=== PATIENT | male | born 1945 | race Caucasian/White ===

== ENCOUNTER 2025-02-20 17:04 | Inpatient (IN) | payer BC, MEDICARE ==
--- NOTE | 2025-02-20 17:44 | ED ---
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 Patient is not doing any more treatment and will let the disease run its course. Patient is however having some shortness of breath and increasing cough over the last week or so. Patient is on Xarelto for having previous PEs. Patient has had a couple bouts of pneumonia. Patient denies any chest pain patient has abdominal pain patient has nausea vomiting diarrhea. Patient denies any recent fever - Related Data Home Medications Medication Instructions Recorded Confirmed Aspirin EC [Ecotrin Low Dose] 81 mg PO DAILY 02/20/25 02/20/25 Furosemide [Lasix] 20 mg PO BID 02/20/25 02/20/25 Ipratropium-Albuterol Nebulize 3 ml INHALATION RT-QID PRN 02/20/25 02/20/25 [Duoneb 0.5 mg-3 mg/3 ml Soln] Levothyroxine Sodium [Synthroid] 75 mcg PO DAILY 02/20/25 02/20/25 Rivaroxaban [Xarelto] 20 mg PO DAILY 02/20/25 02/20/25 carvediloL [Coreg] 6.25 mg PO BID 02/20/25 02/20/25 quiNIDine sulfate 200 mg PO BID 02/20/25 02/20/25 Allergies Allergy/AdvReac Type Severity Reaction Status Date / Time No Known Allergies Allergy Verified 02/20/25 19:53 Review of Systems ROS Statement: Those systems with pertinent positive or pertinent negative responses have been documented in the HPI. ROS Other: All systems not noted in ROS Statement are negative. Past Medical History Past Medical History: Cancer, Chest Pain / Angina, Hypertension, Myocardial Infarction ([place]) Additional Past Medical History / Comment(s): Lung CA History of Any Multi-Drug Resistant Organisms: None Reported Past Surgical History: Cholecystectomy Additional Past Surgical History / Comment(s): Eye Past Psychological History: No Psychological Hx Reported Smoking Status: Former smoker Past Alcohol Use History: None Reported Past Drug Use History: None Reported General Exam - General Exam Comments Initial Comments: GENERAL: Patient is well-developed and well-nourished. Patient is nontoxic and well- hydrated and is in no acute distress. ENT: Neck is soft and supple. No significant lymphadenopathy is noted. Oropharynx is clear. Moist mucous membranes. Neck has full range of motion without eliciting any pain. EYES: The sclera were anicteric and conjunctiva were pink and moist. Extraocular movements were intact and pupils were equal round and reactive to light. Eyelids were unremarkable. PULMONARY: Unlabored respirations. Good breath sounds bilaterally. No audible rales rhonchi or wheezing was noted. CARDIOVASCULAR: There is a regular rate and rhythm without any murmurs gallops or rubs. ABDOMEN: Soft and nontender with normal bowel sounds. SKIN: Skin is clear with no lesions or rashes and otherwise unremarkable. NEUROLOGIC: Patient is alert and oriented x3. Cranial nerves II through XII are grossly intact. Motor and sensory are also intact. Normal speech, volume and content. Symmetrical smile. MUSCULOSKELETAL: Normal extremities with adequate strength and full range of motion. No lower extremity swelling or edema. No calf tenderness. LYMPHATICS: No significant lymphadenopathy is noted PSYCHIATRIC: Normal psychiatric evaluation. Limitations: no limitations Course Vital Signs 02/20/25 02/20/25 02/20/25 17:13 17:39 18:55 Temperature 98.2 F Pulse Rate 84 84 Respiratory 22 20 20 Rate Blood Pressure 155/84 O2 Sat by Pulse 90 L 93 L Oximetry 02/20/25 19:23 Temperature Pulse Rate 70 Respiratory 33 H Rate Blood Pressure 131/80 O2 Sat by Pulse 92 L Oximetry Procedures - Chest Tube Insertion Consent Obtained: verbal consent Side of Procedure: right Indication: Pneumothorax Placed on monitor/pulse oximetry: Yes Site Prep: Chloroprep Local Anesthesia: Lidocaine 1% Amount (mLs): 15 Insertion Site: Midaxillary, Other (Fourth intercostal space) Scalpel: #10 Open into Pleural Space Using: Trocar Tube Size (Persian): Other (24) Returns: Air, Blood Sutured in Place: Yes Type of Suture: Silk Dressing Applied: Petroleum Gauze Attached to Suction: Yes Type of Suction: Pleuravac Repeat X-ray Results: Lung Inflated Patient Tolerated Procedure: well Complications: Pain, Bleeding, Other (Needed to move up the rib space secondary to running into a pleural mass on initial attempt) Medical Decision Making - Medical Decision Making EKG is interpreted by myself. EKG shows atrial fibrillation 81 bpm QRS 103 QT interval is 397 QTc is 434. Patient's EKG shows no ST segment elevation or depression the patient does have some T wave inversion inferiorly as well as V4 through V6 Was pt. sent in by a medical professional or institution (MITUL Zamora, RETAIL STOCK CLERK, urgent care, hospital, or [place] [facility] [place] facility...) When possible be specific @ -No Did you speak to anyone other than the patient for history (EMS, parent, family, police, friend...)? What history was obtained from this source @ -No Did you review nursing and triage notes (agree or disagree)? Why? @ -I reviewed and agree with nursing and triage notes Were old charts reviewed (outside hosp., previous admission, EMS record, old EKG, old radiological studies, urgent care reports/EKG's, [place] health [facility] facility records)? Report findings @ -No old charts were reviewed Differential Diagnosis? @ -Differential Dyspnea: Coronary syndrome, arrhythmia, tamponade, asthma, COPD, pulmonary embolism, pneumonia, pneumothorax, pulmonary effusion, anaphylaxis, diabetic ketoacidosis, flailed chest, pulmonary contusion, diaphragmatic rupture, anemia, neuromuscular, this is not meant to be an all-inclusive list. EKG interpreted by me (3pts min.). @ -As above X-rays interpreted by me (1pt min.). @ -Chest x-ray shows a pneumothorax on the right. Repeat chest x-ray after chest tube shows some inflation of the lung. CT interpreted by me (1pt min.). @ -CT scan shows a 20% pneumo remains after the chest tube placement chest tube placement seems to be in good place. There also appears to be some sort of pleural thickening on the right U/S interpreted by me (1pt. min.). @ -None done What testing was considered but not performed or refused? (CT, X-rays, U/S, l abs)? Why? @ -None What meds were considered but not given or refused? Why? @ -None Did you discuss the management of the patient with other professionals (professionals i.e. MITUL Zamora, RETAIL STOCK CLERK, lab, RT, psych nurse, social research assistant, terrazzo tile maker, teacher, environmental technical officer, case resolution specialist)? Give summary @ -I spoke with Dr. Reynolds and indicated him I thought I may have run into a pleural mass and I also spoke with Dr. Ramirez and explained the same thing to him patient will be admitted. Was smoking cessation discussed for >3mins.? @ -No Was critical care preformed (if so, how long)? @ -35 minutes Were there social determinants of health that impacted care today? How? (Homelessness, low income, unemployed, alcoholism, drug addiction, transportation, low edu. Level, literacy, decrease access to med. care, nursing home, r ehab)? @ -No Was there de-escalation of care discussed even if they declined (Discuss DNR or withdrawal of care, Hospice)? DNR status @ -No What co-morbidities impacted this encounter? (DM, HTN, Smoking, COPD, CAD, Cancer, CVA, ARF, Chemo, Hep., AIDS, mental health diagnosis, sleep apnea, morbid obesity)? @ -None Was patient admitted / discharged? Hospital course, mention meds given and route, prescriptions, significant lab abnormalities, going to OR and other pertinent info. @ -Pneumothorax was relieved by the chest tube. Undiagnosed new problem with uncertain prognosis? @ -No Drug Therapy requiring intensive monitoring for toxicity (Heparin, Nitro, Insulin, Cardizem)? @ -No Were any procedures done? @ -No Diagnosis/symptom? @ -Pneumothorax Acute, or Chronic, or Acute on Chronic? @ -Acute Uncomplicated (without systemic symptoms) or Complicated (systemic symptoms)? @ -Complicated Side effects of treatment? @ -No Exacerbation, Progression, or Severe Exacerbation? @ -No Poses a threat to life or bodily function? How? (Chest pain, USA, MS, pneumonia, PE, COPD, DKA, ARF, appy, cholecystitis, CVA, Diverticulitis, Homicidal, Suicidal, threat to staff... and all critical care pts) @ -Yes this could lead to a tension pneumothorax if not appropriately treated - Lab Data Result diagrams: 02/20/25 18:09 02/20/25 18: Lab Results 02/20/25 02/20/25 02/20/25 Range/Units 18: 18: 18: WBC 7.76 (4.50-10.00) 10*3/uL RBC 4.28 L (4.40-5.60) 10*6/uL Hgb 11.5 L (13.0-17.0) g/dL Hct 35.9 L (39.6-50.0) % MCV 83.9 (80.0-97.0) fL MCH 26.9 L (27.0-32.0) pg MCHC 32.0 (32.0-37.0) g/dL Plt Count 224 (140-440) 10*3/uL MPV 8.7 L (9.5-12.2) fL Immature Gran % (Auto) 0.8 % Neutrophils % 68.6 % Lymphocytes % 10.3 % Monocytes % 14.7 % Eosinophils % 5.2 % Basophils % 0.4 % Immature Gran # 0.06 H (0.00-0.04) 10*3/uL Neutrophils # 5.33 (1.80-7.70) 10*3/uL Lymphocytes # 0.80 L (0.90-5.00) 10*3/uL Monocytes # 1.14 H (0.20-1.00) 10*3/uL Eosinophils # 0.40 H (0.04-0.35) 10*3/uL Basophils # 0.03 (0.00-0.10) 10*3/uL PT 13.0 H (10.0-12.5) sec INR 1.2 H (<1.2) APTT 32.5 H (22.0-30.0) sec Sodium 136 L (137-145) mmol/L Potassium 4.2 (3.5-5.1) mmol/L Chloride 98 (98-107) mmol/L Carbon Dioxide 27 (22-30) mmol/L Anion Gap 11 mmol/L BUN 28 H (9-20) mg/dL Creatinine 1.34 H (0.66-1.25) mg/dL Est GFR (CKD-EPI)AfAm 58 (>60 ml/min/1.73 sqM) Est GFR (CKD-EPI)NonAf 50 (>60 ml/min/1.73 sqM) Glucose 93 (74-99) mg/dL Plasma Lactic Acid Richie (0.7-2.0) mmol/L Calcium 9.6 (8.4-10.2) mg/dL Magnesium 2.2 (1.6-2.3) mg/dL Total Bilirubin 0.7 (0.2-1.3) mg/dL AST 23 (17-59) U/L ALT 16 (4-49) U/L Alkaline Phosphatase 79 (38-126) U/L Troponin I (0.000-0.034) ng/mL NT-Pro-B Natriuret Pep 1120 pg/mL Total Protein 6.4 (6.3-8.2) g/dL Albumin 3.8 (3.5-5.0) g/dL 02/20/25 02/20/25 Range/Units 18:09 18:09 WBC (4.50-10.00) 10*3/uL RBC (4.40-5.60) 10*6/uL Hgb (13.0-17.0) g/dL Hct (39.6-50.0) % MCV (80.0-97.0) fL MCH (27.0-32.0) pg MCHC (32.0-37.0) g/dL Plt Count (140-440) 10*3/uL MPV (9.5-12.2) fL Immature Gran % (Auto) % Neutrophils % % Lymphocytes % % Monocytes % % Eosinophils % % Basophils % % Immature Gran # (0.00-0.04) 10*3/uL Neutrophils # (1.80-7.70) 10*3/uL Lymphocytes # (0.90-5.00) 10*3/uL Monocytes # (0.20-1.00) 10*3/uL Eosinophils # (0.04-0.35) 10*3/uL Basophils # (0.00-0.10) 10*3/uL PT (10.0-12.5) sec INR (<1.2) APTT (22.0-30.0) sec Sodium (137-145) mmol/L Potassium (3.5-5.1) mmol/L Chloride (98-107) mmol/L Carbon Dioxide (22-30) mmol/L Anion Gap mmol/L BUN (9-20) mg/dL Creatinine (0.66-1.25) mg/dL Est GFR (CKD-EPI)AfAm (>60 ml/min/1.73 sqM) Est GFR (CKD-EPI)NonAf (>60 ml/min/1.73 sqM) Glucose (74-99) mg/dL Plasma Lactic Acid Richie 1.4 (0.7-2.0) mmol/L Calcium (8.4-10.2) mg/dL Magnesium (1.6-2.3) mg/dL Total Bilirubin (0.2-1.3) mg/dL AST (17-59) U/L ALT (4-49) U/L Alkaline Phosphatase (38-126) U/L Troponin I 0.180 H* (0.000-0.034) ng/mL NT-Pro-B Natriuret Pep pg/mL Total Protein (6.3-8.2) g/dL Albumin (3.5-5.0) g/dL Disposition Clinical Impression: Pneumothorax, Pleural mass Disposition: ADMITTED IP TO THIS HOSP Referrals: None,Stated [Primary Care Provider] - 1-2 days Time of Disposition: 21:48
[2025-02-20 18:15] LABS: Basophils # (A) 0.03 10*3/uL (0.00-0.10); Basophils % (A) 0.4 %; Eosinophils % (A) 5.2 %; HCT 35.9 % (39.6-50.0); HGB 11.5 g/dL (13.0-17.0); Lymphocytes % (A) 10.3 %; MCH 26.9 pg (27.0-32.0); MCV 83.9 fL (80.0-97.0); Mean Platelet Volume 8.7 fL (9.5-12.2); Monocytes # (A) 1.14 10*3/uL (0.20-1.00); Monocytes % (A) 14.7 %; Neutrophils # (A) 5.33 10*3/uL (1.80-7.70); Neutrophils % (A) 68.6 %; Platelet Count 224 10*3/uL (140-440); RBC 4.28 10*6/uL (4.40-5.60); WBC 7.76 10*3/uL (4.50-10.00)
[2025-02-20 18:35] LABS: INR 1.2 (<1.2); Partial Thromboplastin Time 32.5 sec (22.0-30.0)
--- NOTE | 2025-02-20 18:39 | XR ---
EXAMINATION TYPE: XR chest 2V DATE OF EXAM: 02/20/2025 6:13 PM COMPARISON: None. CLINICAL INDICATION: Male, 79 years old with history of difficulty breathing: Shortness of breath TECHNIQUE: XR chest 2V views of the chest are obtained. FINDINGS: 40-50% right-sided pneumothorax No evidence of mediastinal shift at this time. Right basilar layering effusion. Mild patchy density left upper lobe. MediPort catheter is in place. No evidence for infiltrate. No evidence for atelectasis. Heart size is stable. Mediastinal structures are stable and grossly un; remarkable. No evidence for hilar prominence. Degenerative changes dorsal spine. IMPRESSION: 1. 40-50% right-sided pneumothorax No evidence of mediastinal shift at this time. Right basilar layer ing effusion. Mild patchy density left upper lobe. [facility], , 02/20/2025 6:36 PM
[2025-02-20] MEDS: HYDROmorphone 0.5 MG/0.5 ML SYRINGE IVP STA ×2 (18:59→19:13)
[2025-02-20] MEDS: LIDOCAINE 1% INJ 10MG/ML (20 ML MDV) SQ ONE (19:00)
[2025-02-20] MEDS: MIDAZOLAM 2 MG/2 ML VIAL IV ONE ×2 (19:07→19:14)
[2025-02-20 19:31] LABS: ALT 16 U/L (4-49); AST 23 U/L (17-59); African American GFR (CKD) 58 (>60 ml/min/1.73 sqM); Albumin 3.8 g/dL (3.5-5.0); Alkaline Phosphatase 79 U/L (38-126); Anion Gap 11 mmol/L; Blood Urea Nitrogen 28 mg/dL (9-20); Calcium 9.6 mg/dL (8.4-10.2); Carbon Dioxide 27 mmol/L (22-30); Chloride 98 mmol/L (98-107); Glucose 93 mg/dL (74-99); Magnesium 2.2 mg/dL (1.6-2.3); Non-African American GFR(CKD) 50 (>60 ml/min/1.73 sqM); Potassium 4.2 mmol/L (3.5-5.1); Sodium 136 mmol/L (137-145); Total Bilirubin 0.7 mg/dL (0.2-1.3); Total Protein 6.4 g/dL (6.3-8.2)
[2025-02-20 19:37] LABS: NT-Pro-B-Type Natriuretic Pept 1120 pg/mL
--- NOTE | 2025-02-20 19:46 | XR ---
EXAMINATION TYPE: XR chest 1V confirm line [facility] DATE OF EXAM: 02/20/2025 7:41 PM COMPARISON: Same day study CLINICAL INDICATION: Male, 79 years old with history of post chest tube, TECHNIQUE: Single frontal view of the chest is obtained. FINDINGS: Large right-sided pneumothorax persists and appears to have increased slightly and is estim ated at 50%. Right-sided chest tube is noted with distal tip within the right lung apex. There is sub cutaneous emphysema noted. Increasing patchy density left upper lobe. No mediastinal shift at this ti me. Prominence of the cardiomediastinal silhouette likely related to the AP's portable supine techniq ue. IMPRESSION: 1. Persistent large right-sided pneumothorax with right-sided chest tube as discussed. [facility], , 02/20/2025 7:44 PM
--- NOTE | 2025-02-20 20:18 | CT ---
EXAMINATION TYPE: CT chest wo con DATE OF EXAM: 02/20/2025 8:09 PM COMPARISON: None. CLINICAL INDICATION: Male, 79 years old with history of Post chest tube placement, During chest tube placement DrContreras's are hitting something hard and are having trouble figuring out what they are hitting. TECHNIQUE: Unenhanced CT of the chest was performed with lung and mediastinal window settings submitt ed. The lack of contrast limits evaluation of the vascular, mediastinal and parenchymal structures i ncluding the upper abdomen. CT DLP: 642.2 mGycm, Automated exposure control for dose reduction was used. FINDINGS: LUNGS: Persisting right-sided pneumothorax with chest tube identified extending to the approximate ri ght third rib level. When compared to the chest radiograph the pneumothorax appears to have decreased in size and is now estimated at 25-30%. There is chest wall subcutaneous emphysema seen. There is pl eural thickening noted at the site of chest tube insertion. Right basilar infiltrate and/or atelectas is. Small right-sided effusion. There is patchy infiltrate left upper lobe could be related to aspira tion. Correlate clinically. MEDIASTINUM/ISAÍAS: No evidence of mediastinal shift. Thoracic aorta is of normal caliber with limited evaluation given lack of contrast. No evidence for mediastinal mass. No lymph nodes greater than 1c m. HEART: Size within normal limits. No significant coronary artery calcifications. UPPER ABDOMEN: No significant abnormality is seen. OTHER: No significant other abnormality. IMPRESSION: 1. Persisting right-sided pneumothorax with chest tube identified extending to the approximate right third rib level. When compared to the chest radiograph the pneumothorax appears to have decreased in size and is now estimated at 25-30%. 2.Right basilar infiltrate and/or atelectasis. Small right-sided effusion. There is patchy infiltrate left upper lobe could be related to aspiration. Correlate clinically. [facility], , 02/20/2025 8:15 PM
[2025-02-20] MEDS: SODIUM CHLORIDE 0.9% 1,000 ML IV ONE (22:24)
--- NOTE | 2025-02-21 02:11 | P.CNPUL ---
History of Present Illness Consult date: 02/21/25 Requesting physician: Nilo Johnson Reason for consult: pneumothorax Chief complaint: Shortness of breath History of present illness: Patient is 79-year-old male with past medical history significant for hypothyroidism, FLO with home CPAP, angiosarcoma, pulmonary embolism, and previous right-sided pneumothoraces. Patient presented emergency department yesterday evening complaining of progressively worsening shortness of breath over the last 1 to 2 weeks. There is associated nonproductive cough. Workup in the ED including a chest x-ray showing a 40 to 50% right-sided pneumothorax with right basilar layering effusion. Patchy density in the left upper lobe. The ER physician did insert a right-sided chest tube. A follow-up chest CT showing a persistent right-sided pneumothorax with reduction in size, estimated at approximately 25 to 30%. There is a air-fluid level and persistent right sided pleural effusion. Associated right lung atelectasis and/or masslike consolidation. Redemonstration of patchy left upper lobe infiltrate. CBC: WBC count 7.8, hemoglobin 11.5, platelets 224. PT 13, INR 1.2, APTT 32.5. CMP: Sodium 136, potassium 4.2, chloride 98, serum bicarb 28, creatinine 1.34, glucose 93. Lactic 1.4. LFTs not elevated. Troponin 0.18. NT proBNP 1120. EKG: Atrial fibrillation with controlled ventricular response, rate 81 bpm, nonspecific ST segment changes. Patient currently being evaluated on the cardiac stepdown unit. He is resting comfortably on 4 L/min nasal cannula. Does not appear to be in any respiratory distress. Denies any coughing, hemoptysis, or chest pain. No tracheal shift. Breath sounds are equal. Right- sided thoracotomy tube in place and attached to an atrium and suction at -20 cm H2O. There is 650 mL of sanguinous output in the chamber. Continues to have intermittent airleak. There is some subcutaneous area at the insertion site. Xarelto was not restarted. Denies recent trauma or previous surgical procedures. Denies any recent respiratory infections/pneumonia. Reports remote history of tobacco use. Denies history of COPD/emphysema. Patient states that he has had previous right-sided pneumothorax. 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 He was previously on Keytruda, but stopped this in November,. Reportedly, follows with an oncologist out of the [facility]. Review of Systems REVIEW OF SYSTEMS: CONSTITUTIONAL: Denies any recent significant weight loss or weight gain. EYES: Denies change in vision. EARS, NOSE, MOUTH, THROAT: Denies headaches, denies sore throat. CARDIOVASCULAR: Denies chest pain, palpitations or syncopal episodes. RESPIRATORY: Den see HPI GASTROINTESTINAL: Denies change in appetite, abdominal pain, nausea and vomiting, or diarrhea GENITOURINARY: Denies hematuria, denies infections. MUSKULOSKELETAL: Denies pain, denies swelling. INTEGUMENTARY: Denies rash, denies eczema. NEUROLOGICAL: Denies recent memory loss, no recent seizure activity. PSYCHIATRIC: Denies anxiety, denies depression. HEMATOLOGIC/LYMPHATIC: Denies anemia, denies enlarged lymph node Past Medical History Past Medical History: Cancer, Chest Pain / Angina, Hypertension, Myocardial Infarction ([place]) Additional Past Medical History / Comment(s): Lung CA Last Myocardial Infarction Date:: 1996 History of Any Multi-Drug Resistant Organisms: None Reported Past Surgical History: Cholecystectomy Additional Past Surgical History / Comment(s): Eye Past Psychological History: No Psychological Hx Reported Smoking Status: Former smoker Past Alcohol Use History: None Reported Past Drug Use History: None Reported Medications and Allergies Home Medications Medication Instructions Recorded Confirmed Type Aspirin EC [Ecotrin Low Dose] 81 mg PO DAILY 02/20/25 02/20/25 History Furosemide [Lasix] 20 mg PO BID 02/20/25 02/20/25 History Ipratropium-Albuterol Nebulize 3 ml INHALATION RT-QID PRN 02/20/25 02/20/25 History [Duoneb 0.5 mg-3 mg/3 ml Soln] Levothyroxine Sodium [Synthroid] 75 mcg PO DAILY 02/20/25 02/20/25 History Rivaroxaban [Xarelto] 20 mg PO DAILY 02/20/25 02/20/25 History carvediloL [Coreg] 6.25 mg PO BID 02/20/25 02/20/25 History quiNIDine sulfate 200 mg PO BID 02/20/25 02/20/25 History Allergies Allergy/AdvReac Type Severity Reaction Status Date / Time No Known Allergies Allergy Verified 02/20/25 19:53 Physical Exam Vitals: Vital Signs Temp Pulse Pulse Resp BP BP Pulse Ox 02/21/25 00:33 97.9 F 79 19 117/77 93 L 02/20/25 23:31 75 18 100/67 100 02/20/25 22:12 80 18 134/82 98 02/20/25 19:23 70 33 H 131/80 92 L 02/20/25 18:55 84 20 93 L 02/20/25 17:39 20 02/20/25 17:13 98.2 F 84 22 155/84 90 L Intake and Output 02/20/25 02/20/25 02/21/25 14:59 22:59 06:59 Other: Weight 90.718 kg 90.718 kg GENERAL EXAM: Alert, 79-year-old male, on 4 L/min nasal cannula, not in any respiratory distress, comfortable in no apparent distress. HEAD: Normocephalic and atraumatic EYES: Normal reaction of pupils, equal size. NOSE: Clear with pink turbinates. THROAT: No erythema or exudates. NECK: No masses, no JVD. Trachea midline. CHEST: No chest wall deformity. Right chest Mediport. Right-sided thoracotomy tube secured connected to atrium and suction at -20 cm H2O. Small amount of subcutaneous emphysema at the insertion site. LUNGS: Equal air entry with no crackles, wheeze, rhonchi or dullness. No conver sational dyspnea or accessory muscle use. CVS: S1 and S2 normal with no audible murmur, irregular rhythm. No extra heart sounds ABDOMEN: No hepatosplenomegaly, active bowel sounds, no guarding or rigidity. SPINE: No scoliosis or deformity SKIN: No rashes CENTRAL NERVOUS SYSTEM: No focal deficits, tone is normal in all 4 extremities. EXTREMITIES: There is no peripheral edema, clubbing, or cyanosis. Peripheral pulses are intact. Results - Laboratory Findings CBC and BMP: 02/20/25 18:09 02/20/25 18:09 PT/INR, D-dimer PT 13.0 sec (10.0-12.5) H 02/20/25 18:09 INR 1.2 (<1.2) H 02/20/25 18:09 Abnormal lab findings: Abnormal Labs 02/20/25 02/20/25 02/20/25 18:09 18:09 18:09 RBC 4.28 L Hgb 11.5 L Hct 35.9 L MCH 26.9 L MPV 8.7 L Immature Gran # 0.06 H Lymphocytes # 0.80 L Monocytes # 1.14 H Eosinophils # 0.40 H PT 13.0 H INR 1.2 H APTT 32.5 H Sodium 136 L BUN 28 H Creatinine 1.34 H Troponin I 02/20/25 18:09 RBC Hgb Hct MCH MPV Immature Gran # Lymphocytes # Monocytes # Eosinophils # PT INR APTT Sodium BUN Creatinine Troponin I 0.180 H* - Diagnostic Findings Chest x-ray: image reviewed CT scan - chest: image reviewed Assessment and Plan Assessment: Spontaneous right-sided hydropneumothorax, status post right-sided chest tube insertion in the ED Acute hypoxemic respiratory failure, secondary to above History of angiosarcoma, 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 Atrial fibrillation with controlled ventricular response, normally anticoagulated on Xarelto Acute versus chronic kidney disease, creatinine 1.34 History of obstructive sleep apnea with home CPAP History of hypothyroidism Reported history of PE/DVT Plan: Patient's medications, labs, imaging reviewed Follow-up imaging showing persistent right-sided hydropneumothorax with reduction in size Continue supplemental oxygen via nasal cannula Continue chest tube to suction at -20 cm H2O Monitor chest tube output Provide patient with incentive spirometer to be encouraged hourly Repeat chest x-ray in the morning As needed analgesics ordered CODE STATUS previously addressed, listed as a DO NOT RESUSCITATE/DO NOT INTUBATE We will continue to follow I have personally seen and examined the patient, performed the documentation and the assessment and plan as written. Number of minutes spent on the visit:20 Time with Patient: Greater than 30
[2025-02-21 06:57] LABS: HGB 10.8 g/dL (13.0-17.0); MCH 26.9 pg (27.0-32.0); MCHC 31.8 g/dL (32.0-37.0); MCV 84.6 fL (80.0-97.0); Platelet Count 214 10*3/uL (140-440); RBC 4.02 10*6/uL (4.40-5.60); RDW 15.6 % (11.5-14.5)
--- NOTE | 2025-02-21 07:33 | XR ---
EXAMINATION TYPE: XR chest 1V DATE OF EXAM: 02/21/2025 COMPARISON: 02/20/2025 CLINICAL INDICATION: Male, 79 years old with history of f/u right sided hydropneumothorax status post chest; TECHNIQUE: Single frontal view of the chest is obtained. FINDINGS: Right anterior chest wall injection port with subclavian access and catheter tip near the expected mid SVC. Heart remains borderline enlarged. Interstitial densities persist with improvement compared to prior. Reexpansion of the right lung with small right pleural effusion. Patchy bibasilar opacities, right greater than left. Airspace disease on the left has improved. The right-sided chest tube not clearly seen projecting within the thoracic cavity. Trace right apical pneumothorax measurin g 1 cm remains. IMPRESSION: 1. Right-sided chest tube not clearly seen projecting within the thoracic cavity. Possibly pulled out in the interval. Clinically correlate. 2. Reexpansion of the right lung with trace 1 cm right apical pneumothorax remaining. 3. Improvement in the previous airspace disease. Pulmonary vascular congestion remains. 4. Small right pleural effusion with patchy bibasilar atelectasis and/or consolidation, right greater than left. [facility], , 02/21/2025 7:31 AM
[2025-02-21] MEDS: ACETAMINOPHEN TAB 325 MG TAB PO PRN (09:10)
[2025-02-21] MEDS: FUROSEMIDE 20 MG TAB PO SCH (09:10)
[2025-02-21] MEDS: LEVOTHYROXINE 75 MCG TAB PO SCH (09:12)
[2025-02-21] MEDS: carvediloL 6.25 MG TAB PO SCH (09:12)
--- NOTE | 2025-02-21 11:54 | P.GSCN ---
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 This gentleman presented to [facility] emergency room with complaints of progressive shortness of breath over the last couple of weeks along with nonproductive cough. Chest x-ray in the emergency room demonstrated right-sided pneumothorax for which a chest tube was placed by the emergency room physicians. He also had a CT of the chest demonstrating reduced but still present right-sided pneumothorax along with right sided pleural effusion. Lab work was reviewed. The patient was admitted for evaluation and treatment with consultation placed to pulmonology who then placed a consultation to cardiothoracic surgery for recommendations. 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, was on Keytruda which was stopped in November 2024 Last Myocardial Infarction Date:: 1996 History of Any Multi-Drug Resistant Organisms: None Reported Past Surgical History: Cholecystectomy Additional Past Surgical History / Comment(s): Eye Past Psychological History: No Psychological Hx Reported Smoking Status: Former smoker Past Alcohol Use History: None Reported Past Drug Use History: None Reported Medications and Allergies Home Medications Medication Instructions Recorded Confirmed Type Aspirin EC [Ecotrin Low Dose] 81 mg PO DAILY 02/20/25 02/20/25 History Furosemide [Lasix] 20 mg PO BID 02/20/25 02/20/25 History Ipratropium-Albuterol Nebulize 3 ml INHALATION RT-QID PRN 02/20/25 02/20/25 History [Duoneb 0.5 mg-3 mg/3 ml Soln] Levothyroxine Sodium [Synthroid] 75 mcg PO DAILY 02/20/25 02/20/25 History Rivaroxaban [Xarelto] 20 mg PO DAILY 02/20/25 02/20/25 History carvediloL [Coreg] 6.25 mg PO BID 02/20/25 02/20/25 History quiNIDine sulfate 200 mg PO BID 02/20/25 02/20/25 History Allergies Allergy/AdvReac Type Severity Reaction Status Date / Time No Known Allergies Allergy Verified 02/20/25 19:53 Surgical - Exam Vital Signs Temp Pulse Resp BP Pulse Ox 98.2 F 84 22 155/84 90 L 02/20/25 17:13 02/20/25 17:13 02/20/25 17:13 02/20/25 17:13 02/20/25 17:13 CONSTITUTIONAL: Awake and alert, appears comfortable, cooperative, well- developed, well-nourished, no pain, no acute distress EYES: Pupils equal, round, reactive to light, normal ocular movement ENT: Moist mucous membranes without oral lesions present NECK: No masses, no bruits, trachea midline RESPIRATORY: Lungs sounds coarse in the right base, slightly diminished throughout. Respirations even, nonlabored. Currently on 4 L nasal cannula with oxygen saturation 97%. Strong nonproductive cough. No chest wall deformities. No clubbing or cyanosis present CARDIOVASCULAR: S1, S2 present. Irregular rate and rhythm, atrial fibrillation on telemetry. Palpable peripheral pulses bilaterally. Trace pedal edema present. GASTROINTESTINAL: Abdomen soft, nontender, nondistended without masses or organomegaly noted. There is no rebound or guarding present. Active bowel sounds present 4 quadrants. GENITOURINARY: Deferred INTEGUMENTARY: Skin is warm and dry NEUROLOGIC: Cranial nerves II through XII intact, normal coordination, no obvious motor or sensory deficits, speech is normal MUSKULOSKELETAL: Able to move all extremities, strength equal bilaterally, normal posture PSYCHIATRIC: Alert and oriented to person place and time, appropriate affect, intact judgment and insight Results - Labs 02/21/25 06:24 02/20/25 18:09 Abnormal Lab Results - Last 24 Hours (Table) 02/20/25 02/20/25 02/20/25 Range/Units 18:09 18:09 18:09 RBC 4.28 L (4.40-5.60) 10*6/uL Hgb 11.5 L (13.0-17.0) g/dL Hct 35.9 L (39.6-50.0) % MCH 26.9 L (27.0-32.0) pg MCHC (32.0-37.0) g/dL MPV 8.7 L (9.5-12.2) fL Immature Gran # 0.06 H (0.00-0.04) 10*3/uL Lymphocytes # 0.80 L (0.90-5.00) 10*3/uL Monocytes # 1.14 H (0.20-1.00) 10*3/uL Eosinophils # 0.40 H (0.04-0.35) 10*3/uL PT 13.0 H (10.0-12.5) sec INR 1.2 H (<1.2) APTT 32.5 H (22.0-30.0) sec Sodium 136 L (137-145) mmol/L BUN 28 H (9-20) mg/dL Creatinine 1.34 H (0.66-1.25) mg/dL Troponin I (0.000-0.034) ng/mL 02/20/25 02/21/25 Range/Units 18:09 06:24 RBC 4.02 L (4.40-5.60) 10*6/uL Hgb 10.8 L (13.0-17.0) g/dL Hct 34.0 L (39.6-50.0) % MCH 26.9 L (27.0-32.0) pg MCHC 31.8 L (32.0-37.0) g/dL MPV 9.0 L (9.5-12.2) fL Immature Gran # (0.00-0.04) 10*3/uL Lymphocytes # (0.90-5.00) 10*3/uL Monocytes # (0.20-1.00) 10*3/uL Eosinophils # (0.04-0.35) 10*3/uL PT (10.0-12.5) sec INR (<1.2) APTT (22.0-30.0) sec Sodium (137-145) mmol/L BUN (9-20) mg/dL Creatinine (0.66-1.25) mg/dL Troponin I 0.180 H* (0.000-0.034) ng/mL Diabetes panel 02/20/25 Range/Units 18:09 Sodium 136 L (137-145) mmol/L Potassium 4.2 (3.5-5.1) mmol/L Chloride 98 (98-107) mmol/L Carbon Dioxide 27 (22-30) mmol/L BUN 28 H (9-20) mg/dL Creatinine 1.34 H (0.66-1.25) mg/dL Glucose 93 (74-99) mg/dL Calcium 9.6 (8.4-10.2) mg/dL AST 23 (17-59) U/L ALT 16 (4-49) U/L Alkaline Phosphatase 79 (38-126) U/L Total Protein 6.4 (6.3-8.2) g/dL Albumin 3.8 (3.5-5.0) g/dL Calcium panel 02/20/25 Range/Units 18:09 Calcium 9.6 (8.4-10.2) mg/dL Albumin 3.8 (3.5-5.0) g/dL Pituitary panel 02/20/25 Range/Units 18:09 Sodium 136 L (137-145) mmol/L Potassium 4.2 (3.5-5.1) mmol/L Chloride 98 (98-107) mmol/L Carbon Dioxide 27 (22-30) mmol/L BUN 28 H (9-20) mg/dL Creatinine 1.34 H (0.66-1.25) mg/dL Glucose 93 (74-99) mg/dL Calcium 9.6 (8.4-10.2) mg/dL Adrenal panel 02/20/25 Range/Units 18:09 Sodium 136 L (137-145) mmol/L Potassium 4.2 (3.5-5.1) mmol/L Chloride 98 (98-107) mmol/L Carbon Dioxide 27 (22-30) mmol/L BUN 28 H (9-20) mg/dL Creatinine 1.34 H (0.66-1.25) mg/dL Glucose 93 (74-99) mg/dL Calcium 9.6 (8.4-10.2) mg/dL Total Bilirubin 0.7 (0.2-1.3) mg/dL AST 23 (17-59) U/L ALT 16 (4-49) U/L Alkaline Phosphatase 79 (38-126) U/L Total Protein 6.4 (6.3-8.2) g/dL Albumin 3.8 (3.5-5.0) g/dL - Imaging Chest x-ray: report reviewed, image reviewed CT scan - chest: report reviewed, image reviewed Assessment and Plan Assessment: Recurrent right-sided pneumothorax, third time per patient, status post chest tube placement by the emergency room physicians Acute hypoxemic respiratory failure, currently on 4 L nasal cannula Shortness of breath, secondary to above 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 Hunter, son was present. Chart/diagnostics were reviewed. We did discuss the usual course of treatment when patient has had multiple pneumothoraces. Currently there is no airleak present and the lung appears re-expanded. Upon review of the CAT scan the chest tube does not appear to be in a position to allow talc pleurodesis. Per the patient and his son it has been at least 6 months since the last pneumothorax, may even be over a year ago. The patient is NO CODE STATUS and does not want heroic measures. Our recommendation at this time is to continue to monitor, likely chest tube will be able to be discontinued in the next 24 to 48 hours. We did explain if pneumothorax continues to recur surgery is an option for fixing it although may be high risk given patient's age and harpreet rbidities as well as patient's lack of enthusiasm for surgery. No surgical intervention planned at this point in time. Continue medical management per primary and other consultants. Please call us with any further questions. Thank you Dr. Weiss for this consult, please call us with any further questions. I have personally seen and examined the patient, performed the documentation and the assessment and plan as written. Number of minutes spent on the visit: 30. CORNELIUS Aponte
[2025-02-21] MEDS ORDERED: RIVAROXABAN 20 MG TAB PO SCH (14:00)
--- NOTE | 2025-02-21 15:22 | P.HPIM ---
History of Present Illness H&P Date: 02/21/25 Patient is a 79-year-old male with history of hypothyroidism, obstructive sleep apnea on home CPAP, angiosarcoma status post chemotherapy and radiation from 2 years recently finished in December 2024, atrial fibrillation on Xarelto presents to the ER with complaint of progressively worsening dyspnea for 1 to 2 weeks. Patient had a previous episodes of right-sided pneumothoraces. Initial chest x-ray in the ER shows 40 to 50% right-sided pneumothorax with no evidence of mediastinal shift and mild patchy left upper lobe density. Right-sided chest tube was inserted by the ER physician. Follow-up chest CT shows persistent right-sided pneumothorax with chest tube with a decrease size of pneumothorax which is estimated at 25 to 30%. There continues to be patchy infiltrate in the left upper lobe and some small right-sided effusion. Chest x-ray on 02/21/2025 shows reexpansion of the right lung with trace 1 cm right apical pneumothorax with minimal pulmonary vascular congestion and small right pleural effusion with patchy bibasilar atelectasis or consolidation more on the right side than left. Initial lab work shows WBC 7.76, hemoglobin 11.5, platelet count 224, PT 13.0, INR 1.02, APTT 32.5, sodium 136, potassium 4.2, chloride 98, bicarb 27, BUN 28, creatinine 1.34, EGFR 50, glucose 93, blood and lactic acid 1.4, magnesium 2.2, AST 23, ALT 16, ALP 79, troponin I 0.180, NT proBNP 1120, albumin 3.8. At the time of the interview, patient reports improvement in his dyspnea. Patient denies any chest pain, headaches, dizziness, nausea, vomiting, abdominal pain, dysuria, diarrhea or constipation, numbness or tingling in upper or lower extremities. Patient stated that he smoked cigarettes for close to 50 to 60 years at least 1 pack a day. He has quit smoking about a year ago. Review of systems: Pertinent positives and negatives as discussed in HPI, a complete review of systems was performed and all other systems are negative. Social history: Former smoker Physical examination: Vital signs reviewed General: non toxic, no distress, appears at stated age, normal weight Derm: no unusual rashes/lesions, warm, angiosarcoma lesion on forehead Head: atraumatic, normocephalic, symmetric Eyes: EOMI, no lid lag, anicteric sclera, pupils equal round reactive to light ENT: Nose and ears atraumatic Neck: No cervical lymphadenopathy, trachea midline, supple Mouth: no lip lesion, mucus membranes moist Cardiovascular: S1S2 reg, no murmur, positive dorsalis pedis pulse bilateral, no edema Lungs: CTA bilateral, no rhonchi, no rales, no accessory muscle use, right chest tube on waterseal at -20 cm water suction Abdominal: soft, nontender to palpation, no guarding Ext: muscle strength 5 out of 5 in all 4 extremities grossly, no gross muscle atrophy, no contractures, Neuro: CN II-XI grossly intact, no gross focal neuro deficits Psych: Alert, oriented, appropriate affect Assessment/Plan: This is a Patient is a 79-year-old male with history of hypothyroidism, obstructive sleep apnea on home CPAP, angiosarcoma status post chemotherapy and radiation from 2 years recently finished in December 2024, atrial fibrillation on Xarelto presents to the ER with complaint of progressively worsening dyspnea for 1 to 2 weeks. . Case was discussed with the Emergency Room provider and decis ion was made to admit the patient for right hydropneumothorax. Labs and images: Initial chest x-ray in the ER shows 40 to 50% right-sided pneumothorax with no evidence of mediastinal shift and mild patchy left upper lobe density. Right- sided chest tube was inserted by the ER physician. Follow-up chest CT shows persistent right-sided pneumothorax with chest tube with a decrease size of pneumothorax which is estimated at 25 to 30%. There continues to be patchy infiltrate in the left upper lobe and some small right-sided effusion. Chest x- ray on 02/21/2025 shows reexpansion of the right lung with trace 1 cm right apical pneumothorax with minimal pulmonary vascular congestion and small right pleural effusion with patchy bibasilar atelectasis or consolidation more on the right side than left. Initial lab work shows WBC 7.76, hemoglobin 11.5, platelet count 224, PT 13.0, INR 1.02, APTT 32.5, sodium 136, potassium 4.2, chloride 98, bicarb 27, BUN 28, creatinine 1.34, EGFR 50, glucose 93, blood and lactic acid 1.4, magnesium 2.2, AST 23, ALT 16, ALP 79, troponin I 0.180, NT proBNP 1120, albumin 3.8. Active: #Right-sided hydropneumothorax with right chest tube to waterseal #History of recurrent pneumothoraces #History of angiosarcoma status post chemotherapy and radiation with possible mets to lungs #Acute hypoxemic respiratory failure, currently on 4 L oxygen via nasal cannula Continue with chest tube to waterseal Monitor chest tube output Consult pulmonology Surgery has been consulted by pulmonology for possible Pleurodesis Chest x-ray on 02/21/2025 shows reexpansion of lung with trace 1 cm right apical pneumothorax Repeat chest x-ray tomorrow a.m. Repeat CBC tomorrow a.m. Continue with supplemental oxygen as needed #Elevated troponin I likely type II NSTEMI Continue to trend troponin #CAMERON on CKD Unable to establish baseline creatinine Continue to monitor Repeat BMP tomorrow a.m. Continue with Lasix 20 mg p.o. twice daily for now #Normocytic anemia Order iron studies Chronic: COPD: Resume DuoNebs as needed Hypothyroidism: Resume Synthroid 25 mcg p.o. daily Atrial fibrillation: Resume Xarelto 20 mg p.o., Coreg 6.25 mg p.o. twice daily, aspirin 81 mg p.o. daily DVT prophylaxis: Xarelto GI prophylaxis: None F: IV normal saline at 50 cc/h E: Replete as needed N: Regular diet A: Ambulatory at baseline The patient is admitted with an anticipated more than than 2 midnight stay for evaluation of hydropneumothorax CODE STATUS: No code Discussed with: Patient Anticipated discharge place: Home Dictation was produced using [employer] dictation software. Please excuse any grammatical, word or spelling errors. Past Medical History Past Medical History: Cancer, Chest Pain / Angina, Hypertension, Myocardial Infarction ([place]) Additional Past Medical History / Comment(s): Lung CA Last Myocardial Infarction Date:: 1996 History of Any Multi-Drug Resistant Organisms: None Reported Past Surgical History: Cholecystectomy Additional Past Surgical History / Comment(s): Eye Past Psychological History: No Psychological Hx Reported Smoking Status: Former smoker Past Alcohol Use History: None Reported Past Drug Use History: None Reported Medications and Allergies Home Medications Medication Instructions Recorded Confirmed Type Aspirin EC [Ecotrin Low Dose] 81 mg PO DAILY 02/20/25 02/20/25 History Furosemide [Lasix] 20 mg PO BID 02/20/25 02/20/25 History Ipratropium-Albuterol Nebulize 3 ml INHALATION RT-QID PRN 02/20/25 02/20/25 History [Duoneb 0.5 mg-3 mg/3 ml Soln] Levothyroxine Sodium [Synthroid] 75 mcg PO DAILY 02/20/25 02/20/25 History Rivaroxaban [Xarelto] 20 mg PO DAILY 02/20/25 02/20/25 History carvediloL [Coreg] 6.25 mg PO BID 02/20/25 02/20/25 History quiNIDine sulfate 200 mg PO BID 02/20/25 02/20/25 History Allergies Allergy/AdvReac Type Severity Reaction Status Date / Time No Known Allergies Allergy Verified 02/20/25 19:53 Physical Exam Vitals: Vital Signs Temp Pulse Pulse Resp BP BP Pulse Ox 02/21/25 04:00 97.8 F 74 19 118/78 96 02/21/25 02:00 74 19 02/21/25 00:33 97.9 F 79 19 117/77 93 L 02/20/25 23:31 75 18 100/67 100 02/20/25 22:12 80 18 134/82 98 02/20/25 19:23 70 33 H 131/80 92 L 02/20/25 18:55 84 20 93 L 02/20/25 17:39 20 02/20/25 17:13 98.2 F 84 22 155/84 90 L Intake and Output 02/20/25 02/21/25 02/21/25 22:59 06:59 14:59 Intake Total 0 Output Total 350 Balance -350 Intake: Oral 0 Output: Chest Tube Drainage 90 Chest Tube Right 90 Urine 260 Other: Voiding Method Urinal # Voids 2 Weight 90.718 kg 86 kg Results CBC & Chem 7: 02/21/25 06:24 02/20/25 18:09 Labs: Abnormal Lab Results - Last 24 Hours (Table) 02/20/25 02/20/25 02/20/25 Range/Units 18:09 18:09 18:09 RBC 4.28 L (4.40-5.60) 10*6/uL Hgb 11.5 L (13.0-17.0) g/dL Hct 35.9 L (39.6-50.0) % MCH 26.9 L (27.0-32.0) pg MCHC (32.0-37.0) g/dL MPV 8.7 L (9.5-12.2) fL Immature Gran # 0.06 H (0.00-0.04) 10*3/uL Lymphocytes # 0.80 L (0.90-5.00) 10*3/uL Monocytes # 1.14 H (0.20-1.00) 10*3/uL Eosinophils # 0.40 H (0.04-0.35) 10*3/uL PT 13.0 H (10.0-12.5) sec INR 1.2 H (<1.2) APTT 32.5 H (22.0-30.0) sec Sodium 136 L (137-145) mmol/L BUN 28 H (9-20) mg/dL Creatinine 1.34 H (0.66-1.25) mg/dL Troponin I (0.000-0.034) ng/mL 02/20/25 02/21/25 Range/Units 18:09 06:24 RBC 4.02 L (4.40-5.60) 10*6/uL Hgb 10.8 L (13.0-17.0) g/dL Hct 34.0 L (39.6-50.0) % MCH 26.9 L (27.0-32.0) pg MCHC 31.8 L (32.0-37.0) g/dL MPV 9.0 L (9.5-12.2) fL Immature Gran # (0.00-0.04) 10*3/uL Lymphocytes # (0.90-5.00) 10*3/uL Monocytes # (0.20-1.00) 10*3/uL Eosinophils # (0.04-0.35) 10*3/uL PT (10.0-12.5) sec INR (<1.2) APTT (22.0-30.0) sec Sodium (137-145) mmol/L BUN (9-20) mg/dL Creatinine (0.66-1.25) mg/dL Troponin I 0.180 H* (0.000-0.034) ng/mL Thrombosis Risk Factor Assmnt - Choose All That Apply Any of the Below Risk Factors Present?: No Other Risk Factors: Yes Each Risk Factor Represents 2 Points: Malignancy Each Risk Factor Represents 3 Points: Age 75 years or older Thrombosis Risk Factor Assessment Total Risk Factor Score: 5 Thrombosis Risk Factor Assessment Level: High Risk
[2025-02-21] MEDS ORDERED: QUINIDINE SULFATE 200 MG PO SCH ×2 (16:00→21:00)
[2025-02-21] MEDS: RIVAROXABAN 20 MG TAB PO SCH (16:56)
[2025-02-21] MEDS: QUINIDINE SULFATE 200 MG PO SCH (19:57)
[2025-02-21 21:07] LABS: % Iron Saturation 6.38 (15.00-50.00)
[2025-02-21] MEDS: IPRATROPIUM-ALBUTEROL 3 ML NEB INHALATION PRN (21:38)
[2025-02-22] MEDS: MORPHINE SULFATE 2 MG/ML SYRINGE IVP PRN (00:12)
[2025-02-22 06:26] LABS: Basophils # (A) 0.04 10*3/uL (0.00-0.10); Basophils % (A) 0.5 %; Eosinophils # (A) 0.43 10*3/uL (0.04-0.35); Eosinophils % (A) 5.8 %; HCT 31.9 % (39.6-50.0); HGB 9.8 g/dL (13.0-17.0); Lymphocytes # (A) 0.86 10*3/uL (0.90-5.00); Lymphocytes % (A) 11.5 %; MCH 26.1 pg (27.0-32.0); MCHC 30.7 g/dL (32.0-37.0); MCV 85.1 fL (80.0-97.0); Mean Platelet Volume 8.9 fL (9.5-12.2); Monocytes # (A) 1.05 10*3/uL (0.20-1.00); Monocytes % (A) 14.1 %; Neutrophils # (A) 5.01 10*3/uL (1.80-7.70); Neutrophils % (A) 67.3 %; Platelet Count 204 10*3/uL (140-440); RBC 3.75 10*6/uL (4.40-5.60); RDW 15.8 % (11.5-14.5); WBC 7.45 10*3/uL (4.50-10.00)
[2025-02-22 06:51] LABS: African American GFR (CKD) 59 (>60 ml/min/1.73 sqM); Anion Gap 6 mmol/L; Blood Urea Nitrogen 23 mg/dL (9-20); Calcium 9.1 mg/dL (8.4-10.2); Carbon Dioxide 28 mmol/L (22-30); Chloride 104 mmol/L (98-107); Glucose 100 mg/dL (74-99); Magnesium 2.1 mg/dL (1.6-2.3); Non-African American GFR(CKD) 51 (>60 ml/min/1.73 sqM); Potassium 3.7 mmol/L (3.5-5.1); Sodium 138 mmol/L (137-145)
[2025-02-22] MEDS: ASPIRIN 81 MG PO SCH (07:27)
--- NOTE | 2025-02-22 07:30 | XR ---
EXAMINATION TYPE: XR chest 1V portable DATE OF EXAM: 02/22/2025 6:48 AM COMPARISON: 02/21/2025 CLINICAL INDICATION: Male, 79 years old with history of History of hydropneumothorax, , FINDINGS: Right anterior chest wall injection port with catheter tip at the mid SVC level. Heart mildly enlarge d. Interstitial densities persist. Again, right-sided chest tube not clearly seen entering the pleura l space,, suspected to have been pulled back. Small right pleural effusion and right basilar opacity remains. 6 mm right apical pneumothorax versus 1 cm, previously. IMPRESSION: 1. Again, right-sided chest tube appears to have been pulled back, tip at the edge of the pleural spa ce. A trace 6 mm right apical pneumothorax remains versus 1.0 cm, previously. 2. Otherwise, stable exam with small right pleural effusion and prominent right basilar atelectasis a nd/or consolidation. Background mild interstitial density. [facility], , 02/22/2025 7:27 AM
--- NOTE | 2025-02-22 11:32 | P.PN ---
Subjective Progress Note Date: 02/22/25 Principal diagnosis: Right-sided pneumothorax. Patient is 79-year-old male with past medical history significant for hypothyroidism, FLO with home CPAP, angiosarcoma, pulmonary embolism, and previous right-sided pneumothoraces. Patient presented emergency department yesterday evening complaining of progressively worsening shortness of breath over the last 1 to 2 weeks. There is associated nonproductive cough. Workup in the ED including a chest x-ray showing a 40 to 50% right-sided pneumothorax with right basilar layering effusion. Patchy density in the left upper lobe. The ER physician did insert a right-sided chest tube. A follow-up chest CT showing a persistent right-sided pneumothorax with reduction in size, estimated at approximately 25 to 30%. There is a air-fluid level and persistent right sided pleural effusion. Associated right lung atelectasis and/or masslike consolidation. Redemonstration of patchy left upper lobe infiltrate. CBC: WBC count 7.8, hemoglobin 11.5, platelets 224. PT 13, INR 1.2, APTT 32.5. CMP: Sodium 136, potassium 4.2, chloride 98, serum bicarb 28, creatinine 1.34, glucose 93. Lactic 1.4. LFTs not elevated. Troponin 0.18. NT proBNP 1120. EKG: Atrial fibrillation with controlled ventricular response, rate 81 bpm, nonspecific ST segment changes. Patient currently being evaluated on the cardiac stepdown unit. He is resting comfortably on 4 L/min nasal cannula. Does not appear to be in any respiratory distress. Denies any coughing, hemoptysis, or chest pain. No tracheal shift. Breath sounds are equal. Right-sided thoracotomy tube in place and attached to an atrium and suction at - 20 cm H2O. There is 650 mL of sanguinous output in the chamber. Continues to have intermittent airleak. There is some subcutaneous area at the insertion site. Xarelto was not restarted. Denies recent trauma or previous surgical procedures. Denies any recent respiratory infections/pneumonia. Reports remote history of tobacco use. Denies history of COPD/emphysema. Patient states that he has had previous right-sided pneumothorax. 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 He was previously on Keytruda, but stopped this in November,. Reportedly, follows with an oncologist out of the [facility]. Progress note dated February 22, 2025. The patient is seen today in room 364. He is on 2 L of oxygen. He has a right chest tube in place. No IV fluids. The chest tube is to suction. There is no leak. His chest tube and pneumothorax is currently being managed by cardiothoracic surgery. On today's chest x-ray, there was a trace right apical pneumothorax, smaller than yesterday's chest x-ray. Clinically, the patient stable. Current labs include a white count of 7.5, hemoglobin 9.8, hematocrit 31.9, and platelet count of 204,000. Sodium 138, potassium 3.7, chlorides 104, CO2 28, BUN 23, creatinine 1.32. Glucose was 100. Calcium 9.1, magnesium 2.1. Objective - Vital Signs Vital signs: Vital Signs Temp 98.2 F 02/22/25 07:25 Pulse 93 02/22/25 07:25 Resp 17 02/22/25 07:25 BP 110/75 02/22/25 07:25 Pulse Ox 91 L 02/22/25 07:25 FiO2 Intake & Output 02/21/25 02/22/25 02/22/25 18:59 06:59 18:59 Intake Total 2180 130 Output Total 600 75 400 Balance 1580 -75 -270 Weight 85 kg Intake: IV 10 Invasive Line 1 10 Intake, IV Titration 500 Amount Sodium Chloride 0.9% 1, 500 000 ml @ 50 mls/hr IV . Q20H ONE Rx#:[id number] Oral 1680 120 Output: Chest Tube Drainage 0 0 0 Chest Tube Right 0 0 0 Urine 600 75 400 Other: Voiding Method Urinal Urinal Urinal # Voids 1 1 - Exam No acute distress, oriented 3. Currently on 2 L nasal cannula. HEENT examination is grossly unremarkable. Mucous membranes are moist. No oral lesions. Neck supple. Full range of motion. No adenopathy thyromegaly or neck vein distention. Cardiovascular examination reveals regular rhythm rate. S1-S2 normal. No S3 or S4. No discernible murmur noted. Lungs reveal mostly clear breath sounds. Few scattered rhonchi. Right-sided chest tube in place. No airleak. No wheezes. No crackles. Abdomen soft bowel sounds are heard. No masses or tenderness. Extremities are intact. No cyanosis clubbing or edema. Skin is without rash or lesion. Neurologic examination is brief but nonfocal. - Labs CBC & Chem 7: 02/22/25 05:55 02/22/25 05:55 Labs: Abnormal Lab Results - Last 24 Hours (Table) 02/21/25 02/21/25 02/22/25 Range/Units 15:39 15:39 05:55 RBC 3.75 L (4.40-5.60) 10*6/uL Hgb 9.8 L (13.0-17.0) g/dL Hct 31.9 L (39.6-50.0) % MCH 26.1 L (27.0-32.0) pg MCHC 30.7 L (32.0-37.0) g/dL MPV 8.9 L (9.5-12.2) fL Immature Gran # 0.06 H (0.00-0.04) 10*3/uL Lymphocytes # 0.86 L (0.90-5.00) 10*3/uL Monocytes # 1.05 H (0.20-1.00) 10*3/uL Eosinophils # 0.43 H (0.04-0.35) 10*3/uL BUN (9-20) mg/dL Creatinine (0.66-1.25) mg/dL Glucose (74-99) mg/dL Iron 15 L (65-175) UG/DL % Saturation 6.38 L (15.00-50.00) Transferrin 168.0 L (204.0-354.0) mg/dL Troponin I 0.127 H* (0.000-0.034) ng/mL 02/22/25 Range/Units 05:55 RBC (4.40-5.60) 10*6/uL Hgb (13.0-17.0) g/dL Hct (39.6-50.0) % MCH (27.0-32.0) pg MCHC (32.0-37.0) g/dL MPV (9.5-12.2) fL Immature Gran # (0.00-0.04) 10*3/uL Lymphocytes # (0.90-5.00) 10*3/uL Monocytes # (0.20-1.00) 10*3/uL Eosinophils # (0.04-0.35) 10*3/uL BUN 23 H (9-20) mg/dL Creatinine 1.32 H (0.66-1.25) mg/dL Glucose 100 H (74-99) mg/dL Iron (65-175) UG/DL % Saturation (15.00-50.00) Transferrin (204.0-354.0) mg/dL Troponin I (0.000-0.034) ng/mL Microbiology - Last 24 Hours (Table) 02/20/25 18:09 Blood Culture - Preliminary Blood Assessment and Plan Assessment: Spontaneous right-sided hydropneumothorax, status post right-sided chest tube insertion. Acute hypoxemic respiratory failure, secondary to above. 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 Atrial fibrillation with controlled ventricular response. Acute versus chronic kidney disease, creatinine 1.34. History of obstructive sleep apnea with home CPAP. History of hypothyroidism. Reported history of PE/DVT. Plan: Plan dated February 22, 2025. The patient is seen today in room 364. He is resting comfortably in bed. He is on 3 L of oxygen. No IV fluids. His chest tube, on the right side, is being managed by cardiothoracic surgery. The chest tube is still on suction. Likely will go to waterseal soon. There is no leaks. Clinically, the patient is stable. Labs, x-rays, and all medications are reviewed. We will continue to follow and make recommendations were appropriate. Prognosis is guarded. Dictation was produced using [employer] PFation software. Please excuse any grammatical, word or spelling errors. Time with Patient: Less than 30
--- NOTE | 2025-02-22 11:43 | CDI ---
Documentation Clarification Form Date: 02/22/2025 11:03:00 AM From: Shona Huston RN, CCDS Phone: [phone] Admit Date: 02/20/2025 09:51:00 PM Patient Name: Adarsh Brice Visit Number: [id number] Discharge Date: ATTENTION: The Clinical Documentation Specialists (CDI) and [facility] Coding Staff appreciate your assistance in clarifying documentation. Please respond to the clarification below the line at the bottom and electronically sign. The CDI & [facility] Coding staff will review the response and follow-up if needed. Please note: Queries are made part of the Legal Health Record. If you have any questions, please contact the author of this message via ITS. Doctor. Kim Shirapito Type 2 ME is documented in the H/P on 02/21/25. Additional clarification regarding the etiology of the Type 2 ME is requested. 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 Troponin: (02/20) 0.180, (02/21) 0.127 02/20 VS 155.84 84 22 98.2 90% RA, 133/80 70 33 92% 92% 15L NRB EKG Results: atrial fibrillation [address] segment elevation or depression the patient does have some T wave inversion inferiorly as well as V4 through V6 02/20 CXR: 1. 40-50% right-sided pneumothorax No evidence of mediastinal shift at this time. Right basilar layering effusion. Mild patchy density left upper lobe. 02/21 pulmonary consult: Spontaneous right-sided hydropneumothorax, status post right-sided chest tube insertion in the ED Acute hypoxemic respiratory failure, secondary to above. Treatment: Monitor O2 Sat's (titrate) Incentive Spirometry Q 1HR Continue with chest tube to waterseal, monitor output CXR daily Please clarify the etiology of the Type 2 ME, if known [ x ] Type 2 ME due to acute respiratory failure [ ] Type 2 ME due to other (please specify ) [ ] Unable to determine [ ] Other Condition, please specify (Template Last Revised: December 2020) MTDD
[2025-02-22] MEDS: FERROUS SULFATE 325 MG TAB PO SCH (12:23)
--- NOTE | 2025-02-22 14:06 | P.PN ---
Subjective Progress Note Date: 02/22/25 Hospital Course: Patient is a 79-year-old male with history of hypothyroidism, obstructive sleep apnea on home CPAP, angiosarcoma status post chemotherapy and radiation from 2 years recently finished in December 2024, atrial fibrillation on Xarelto presents to the ER with complaint of progressively worsening dyspnea for 1 to 2 weeks. Patient had a previous episodes of right-sided pneumothoraces. Initial chest x- ray in the ER shows 40 to 50% right-sided pneumothorax with no evidence of mediastinal shift and mild patchy left upper lobe density. Right-sided chest tube was inserted by the ER physician. Follow-up chest CT shows persistent right-sided pneumothorax with chest tube with a decrease size of pneumothorax which is estimated at 25 to 30%. There continues to be patchy infiltrate in the left upper lobe and some small right-sided effusion. Chest x-ray on 02/21/2025 shows reexpansion of the right lung with trace 1 cm right apical pneumothorax with minimal pulmonary vascular congestion and small right pleural effusion with patchy bibasilar atelectasis or consolidation more on the right side than left. Initial lab work shows WBC 7.76, hemoglobin 11.5, platelet count 224, PT 13.0, INR 1.02, APTT 32.5, sodium 136, potassium 4.2, chloride 98, bicarb 27, BUN 28, creatinine 1.34, EGFR 50, glucose 93, blood and lactic acid 1.4, magnesium 2.2, AST 23, ALT 16, ALP 79, troponin I 0.180, NT proBNP 1120, albumin 3.8. Subjective: Patient seen and examined at the bedside. No acute events overnight. Patient still has a right-sided chest tube to suction. There has been no airleak noted and no additional serosanguineous fluid since yesterday. Chest tube and pneumothorax been currently managed by cardiothoracic surgery. Chest x-ray today shows trace 6 mm right apical pneumothorax. There is small right pleural effusion and prominent bibasilar atelectasis with mild interstitial density. Labs today shows WBC 7.45, hemoglobin 9.8, sodium 138, potassium of 3.7, BUN 23, creatinine 1.32 calcium 9.1, magnesium 2.1, iron 15, TIBC 235, percent saturation 6.3, transferrin 168, ferritin 144. All Systems reviewed and pertinent positives and negatives noted in HPI, all other symptoms are negative Objective: Vital signs reviewed. General: non toxic, no distress, appears at stated age, normal weight Derm: no unusual rashes/lesions, warm Head: atraumatic, normocephalic, symmetric Eyes: EOMI, no lid lag, anicteric sclera, pupils equal round reactive to light ENT: Nose and ears atraumatic Neck: No cervical lymphadenopathy, trachea midline, supple Mouth: no lip lesion, mucus membranes moist Cardiovascular: S1S2 reg, no murmur, positive dorsalis pedis pulse bilateral, no edema Lungs: CTA bilateral, no rhonchi, no rales, no accessory muscle use Abdominal: soft, nontender to palpation, no guarding Ext: muscle strength 5 out of 5 in all 4 extremities grossly, no gross muscle a trophy, no contractures, Neuro: CN II-XI grossly intact, no gross focal neuro deficits Psych: Alert, oriented, appropriate affect Labs and images: Chest x-ray today shows trace 6 mm right apical pneumothorax. There is small right pleural effusion and prominent bibasilar atelectasis with mild inte rstitial density. Labs today shows WBC 7.45, hemoglobin 9.8, sodium 138, potassium of 3.7, BUN 23, creatinine 1.32 calcium 9.1, magnesium 2.1, iron 15, TIBC 235, percent saturation 6.3, transferrin 168, ferritin 144. Assessment and Plan: #Right-sided hydropneumothorax with right chest tube to wall suction at -20 cm water #History of recurrent pneumothoraces #History of angiosarcoma status post chemotherapy and radiation with possible mets to lungs #Acute hypoxemic respiratory failure, currently on 4 L oxygen via nasal cannula Continue with chest tube to suction Monitor chest tube output Pulmonology on board, note reviewed Surgery has been consulted by pulmonology for possible Pleurodesis, reviewed, no surgical intervention planned at this point. Chest x-ray reviewed from 02/22/2025 with findings as above Repeat chest x-ray tomorrow a.m. Continue with supplemental oxygen as needed #Elevated troponin I likely type II NSTEMI Troponin trending flat #CAMERON on CKD Unable to establish baseline creatinine Continue to monitor Repeat BMP tomorrow a.m. Continue with Lasix 20 mg p.o. twice daily for now #Normocytic anemia with anemia of the chronic disease Low iron findings Order ferrous sulfate 325 mg p.o. with lunch Chronic: COPD: Resume DuoNebs as needed Hypothyroidism: Resume Synthroid 25 mcg p.o. daily Atrial fibrillation: Resume Xarelto 20 mg p.o., Coreg 6.25 mg p.o. twice daily, aspirin 81 mg p.o. daily DVT prophylaxis: Xarelto GI prophylaxis: None F: IV normal saline at 50 cc/h E: Replete as needed N: Regular diet A: Ambulatory at baseline The patient is admitted with an anticipated more than than 2 midnight stay for evaluation of hydropneumothorax CODE STATUS: No code Discussed with: Patient Anticipated discharge place: Home Dictation was produced using [employer] dictation software. Please excuse any grammatical, word or spelling errors. Objective - Vital Signs Vital signs: Vital Signs Temp 98.5 F 02/22/25 12:00 Pulse 79 02/22/25 12:00 Resp 17 02/22/25 12:00 BP 107/75 02/22/25 12:00 Pulse Ox 95 02/22/25 12:00 FiO2 Intake & Output 02/21/25 02/22/25 02/22/25 18:59 06:59 18:59 Intake Total 2180 250 Output Total 600 75 400 Balance 1580 -75 -150 Weight 85 kg Intake: IV 10 Invasive Line 1 10 Intake, IV Titration 500 Amount Sodium Chloride 0.9% 1, 500 000 ml @ 50 mls/hr IV . Q20H ONE Rx#:[id number] Oral 1680 240 Output: Chest Tube Drainage 0 0 0 Chest Tube Right 0 0 0 Urine 600 75 400 Other: Voiding Method Urinal Urinal Urinal # Voids 1 1 - Labs CBC & Chem 7: 02/22/25 05:55 02/22/25 05:55 Labs: Abnormal Lab Results - Last 24 Hours (Table) 02/21/25 02/21/25 02/22/25 Range/Units 15:39 15:39 05:55 RBC 3.75 L (4.40-5.60) 10*6/uL Hgb 9.8 L (13.0-17.0) g/dL Hct 31.9 L (39.6-50.0) % MCH 26.1 L (27.0-32.0) pg MCHC 30.7 L (32.0-37.0) g/dL MPV 8.9 L (9.5-12.2) fL Immature Gran # 0.06 H (0.00-0.04) 10*3/uL Lymphocytes # 0.86 L (0.90-5.00) 10*3/uL Monocytes # 1.05 H (0.20-1.00) 10*3/uL Eosinophils # 0.43 H (0.04-0.35) 10*3/uL BUN (9-20) mg/dL Creatinine (0.66-1.25) mg/dL Glucose (74-99) mg/dL Iron 15 L (65-175) UG/DL % Saturation 6.38 L (15.00-50.00) Transferrin 168.0 L (204.0-354.0) mg/dL Troponin I 0.127 H* (0.000-0.034) ng/mL 02/22/25 Range/Units 05:55 RBC (4.40-5.60) 10*6/uL Hgb (13.0-17.0) g/dL Hct (39.6-50.0) % MCH (27.0-32.0) pg MCHC (32.0-37.0) g/dL MPV (9.5-12.2) fL Immature Gran # (0.00-0.04) 10*3/uL Lymphocytes # (0.90-5.00) 10*3/uL Monocytes # (0.20-1.00) 10*3/uL Eosinophils # (0.04-0.35) 10*3/uL BUN 23 H (9-20) mg/dL Creatinine 1.32 H (0.66-1.25) mg/dL Glucose 100 H (74-99) mg/dL Iron (65-175) UG/DL % Saturation (15.00-50.00) Transferrin (204.0-354.0) mg/dL Troponin I (0.000-0.034) ng/mL Microbiology - Last 24 Hours (Table) 02/20/25 18:09 Blood Culture - Preliminary Blood
[2025-02-22] MEDS: guaiFENesin SYRUP 100MG/5ML 200 MG/10 ML CUP PO PRN (22:26)
[2025-02-23 03:46] VITALS: TEMP 98
--- NOTE | 2025-02-23 06:53 | XR ---
EXAMINATION TYPE: XR chest 1V DATE OF EXAM: 02/23/2025 CLINICAL INDICATION: Male, 79 years old with history of Follow-up chest x-ray, history of pneumothora x, progress study. TECHNIQUE: Single AP portable upright view of the chest is obtained. COMPARISON: Chest x-ray from one day earlier FINDINGS: Stable right subclavian Mediport catheter. Persistent mild cardiomegaly with [id number] sized right-sided pleural fluid collection and ri ght basilar opacity. Persistent right-sided chest tube appears lateral to the pleural space. Position is stable. Persistent left basilar linear scarring and/or atelectasis. Persistence central venous co ngestion. No definitive pneumothorax on today's study. IMPRESSION: Stable positioning of right-sided chest tube appears outside pleural space. No definitive pneumothorax seen bilaterally. Persistent small to moderate sized right-sided pleural fluid collecti on with right basilar acute infiltrate and/or atelectasis. Persistent mild cardiomegaly. [facility], , 02/23/2025 6:51 AM
[2025-02-23 07:12] LABS: Basophils # (A) 0.04 10*3/uL (0.00-0.10); Basophils % (A) 0.5 %; Eosinophils # (A) 0.31 10*3/uL (0.04-0.35); Eosinophils % (A) 3.9 %; HCT 31.6 % (39.6-50.0); HGB 9.8 g/dL (13.0-17.0); Lymphocytes # (A) 0.77 10*3/uL (0.90-5.00); Lymphocytes % (A) 9.7 %; MCH 26.1 pg (27.0-32.0); Mean Platelet Volume 9.1 fL (9.5-12.2); Monocytes # (A) 1.11 10*3/uL (0.20-1.00); Neutrophils # (A) 5.62 10*3/uL (1.80-7.70); Platelet Count 224 10*3/uL (140-440); RBC 3.76 10*6/uL (4.40-5.60); RDW 15.8 % (11.5-14.5); WBC 7.92 10*3/uL (4.50-10.00)
[2025-02-23 07:25] LABS: African American GFR (CKD) 71 (>60 ml/min/1.73 sqM); Anion Gap 8 mmol/L; Blood Urea Nitrogen 23 mg/dL (9-20); Calcium 9.1 mg/dL (8.4-10.2); Carbon Dioxide 27 mmol/L (22-30); Chloride 103 mmol/L (98-107); Glucose 100 mg/dL (74-99); Non-African American GFR(CKD) 61 (>60 ml/min/1.73 sqM); Potassium 3.7 mmol/L (3.5-5.1); Sodium 138 mmol/L (137-145)
[2025-02-23 08:58] VITALS: BP 139/57; PULSE 88; RESP 16
--- NOTE | 2025-02-23 10:54 | XR ---
EXAMINATION TYPE: XR chest 1V portable DATE OF EXAM: 02/23/2025 CLINICAL INDICATION: Male, 79 years old with history of Post chest tube removal, progress study. TECHNIQUE: Single AP portable upright view of the chest is obtained. COMPARISON: Chest x-ray from earlier today FINDINGS: Stable right subclavian Mediport catheter. Persistent mild cardiomegaly with [id number] sized right-sided pleural fluid collection and ri ght basilar opacity. Interval removal of right-sided chest tube. Persistent left basilar linear scarr ing and/or atelectasis. Persistence mild central venous congestion. No definitive pneumothorax on tod ay's study. Osseous structures are intact. IMPRESSION: Interval removal of malpositioned right-sided chest tube otherwise no significant change from most recent x-ray. [facility], , 02/23/2025 10:51 AM
--- NOTE | 2025-02-23 10:59 | P.PN ---
Subjective Progress Note Date: 02/23/25 Principal diagnosis: Recurrent right-sided pneumothorax. Past medical history significant for angiosarcoma diagnosed about 1-1/2 years ago for which he follows at the [facility] and was on Keytruda with cessation in November 2024 which has metastasized to his lung, previous right sided pneumothoraces, obstructive sleep apnea on CPAP use, pulmonary embolism as well as atrial fibrillation on Xarelto for anticoagulation, previous tobacco dependence, hypothyroid. The patient was seen and examined in follow-up today February 23, 2025 at his bedside on the third floor cardiac stepdown unit. He is currently sitting up to the bedside chair, is awake, alert, oriented x 3 and is in no acute apparent distress. Oxygen saturations are 98% on room air, and he is achieving 2500 mL on his incentive spirometry with encouragement. Remote telemetry is showing atrial fibrillation heart rate 88 bpm. Chest x-ray this morning shows the positioning of his right pleural chest tube outside the pleural space. Objective - Vital Signs Vital signs: Vital Signs Temp 98 F 02/23/25 03:45 Pulse 88 02/23/25 08:00 Resp 16 02/23/25 08:00 BP 139/57 02/23/25 08:00 Pulse Ox 98 02/23/25 08:00 FiO2 Intake & Output 02/22/25 02/23/25 02/23/25 18:59 06:59 18:59 Intake Total 380 560 190 Output Total 400 650 Balance -20 -90 190 Weight 85.4 kg Intake: IV 20 20 10 Invasive Line 1 20 20 10 Oral 360 540 180 Output: Chest Tube Drainage 0 0 Chest Tube Right 0 0 Urine 400 650 Other: Voiding Method Urinal Urinal Urinal # Voids 2 - Exam CONSTITUTIONAL: Appears comfortable, cooperative, no acute distress RESPIRATORY: Lungs sounds diminished to his bilateral bases right greater than left. Respirations symmetrical, nonlabored. Currently on room air with oxygen saturation 98%. Able to achieve 2500 mL on his incentive spirometry. Strong cough. CARDIOVASCULAR: S1, S2 present. Irregular rate and rhythm, sinus rhythm on telemetry. Palpable peripheral pulses bilaterally. No edema present. No calf pain or tenderness noted. SCDs present. GASTROINTESTINAL: Abdomen soft, nontender, nondistended. Active bowel sounds present 4 quadrants. Tolerating diet. GENITOURINARY: Continues to void clear, yellow urine INTEGUMENTARY: Skin is warm and dry with evidence of good perfusion. NEUROLOGIC: Cranial nerves II through XII intact. No focal deficits. MUSKULOSKELETAL: Able to move all extremities, strength equal bilaterally, gait normal. PSYCHIATRIC: Alert and oriented to person place and time, appropriate affect, intact judgment and insight. INVASIVE LINES AND TUBES: Right pleural chest tubes present and connected to wall suction, no air leak present. - Labs CBC & Chem 7: 02/23/25 06:30 02/23/25 06:30 Labs: Abnormal Lab Results - Last 24 Hours (Table) 02/23/25 02/23/25 Range/Units 06:30 06:30 RBC 3.76 L (4.40-5.60) 10*6/uL Hgb 9.8 L (13.0-17.0) g/dL Hct 31.6 L (39.6-50.0) % MCH 26.1 L (27.0-32.0) pg MCHC 31.0 L (32.0-37.0) g/dL MPV 9.1 L (9.5-12.2) fL Immature Gran # 0.07 H (0.00-0.04) 10*3/uL Lymphocytes # 0.77 L (0.90-5.00) 10*3/uL Monocytes # 1.11 H (0.20-1.00) 10*3/uL BUN 23 H (9-20) mg/dL Glucose 100 H (74-99) mg/dL Microbiology - Last 24 Hours (Table) 02/20/25 18:09 Blood Culture - Preliminary Blood - Imaging and Cardiology Chest x-ray: report reviewed, image reviewed Assessment and Plan Assessment: Recurrent right-sided pneumothorax, third time per patient, status post chest tube placement by the emergency room physicians Acute hypoxemic respiratory failure, currently on 4 L nasal cannula Shortness of breath, secondary to above History of angiosarcoma diagnosed about 1-1/2 years ago for which he follows at the [facility] and was on Keytruda with cessation in November 2024 which has metastasized to his lung Previous right sided pneumothoraces Obstructive sleep apnea on CPAP use Reported pulmonary embolism as well as atrial fibrillation on Xarelto for anticoagulation Previous tobacco dependence Hypothyroid Plan: Chest x-ray results reviewed with Dr. Tian from pulmonary medicine. We will remove his right pleural chest tube. Repeat chest x-ray post chest tube removal. We will continue to follow the patient on an as-needed basis. Time with Patient: Greater than 30
--- NOTE | 2025-02-23 11:45 | P.DS ---
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 Patient had a previous episodes of right-sided pneumothoraces. Initial chest x- ray in the ER shows 40 to 50% right-sided pneumothorax with no evidence of mediastinal shift and mild patchy left upper lobe density. Right-sided chest tube was inserted by the ER physician. There is 650 mL of sanguinous output in the chamber. Follow-up chest CT shows persistent right-sided pneumothorax with chest tube with a decrease size of pneumothorax which is estimated at 25 to 30%. There continues to be patchy infiltrate in the left upper lobe and some small right-sided effusion. Chest x-ray on 02/21/2025 shows reexpansion of the right lung with trace 1 cm right apical pneumothorax with minimal pulmonary vascular congestion and small right pleural effusion with patchy bibasilar atelectasis or consolidation more on the right side than left. Initial lab work shows WBC 7.76, hemoglobin 11.5, platelet count 224, PT 13.0, INR 1.02, APTT 32.5, sodium 136, potassium 4.2, chloride 98, bicarb 27, BUN 28, creatinine 1.34, EGFR 50, glucose 93, blood and lactic acid 1.4, magnesium 2.2, AST 23, ALT 16, ALP 79, troponin I 0.180, NT proBNP 1120, albumin 3.8. Pulmonology and cardiothoracic surgery were consulted. Subsequent chest x-ray shows resolution of the apical pneumothorax as well as no more air leak and output noted. Chest tube was removed without any complication. Patient is his breathing on room air. Patient is not complaining of any shortness of breath, chest pain, nausea, vomiting, fever, chills, abdominal pain, diarrhea or constipation, dysuria. Patient is medically optimized and hemodynamically stable for discharge. Patient to follow-up with his PCP and testing and regulating technician within 1 week. Patient to be discharged on home medication as directed. Discharge disposition: Home Vital signs reviewed. Gen: in no apparent distress, resting comfortably in bed Eyes: PERRLA, EOMI, no scleral injection or icterus HENT: normocephalic, atraumatic, good hearing acuity, moist mucous membranes Neck: full range of motion Resp: CTAB, no rales, rhonchi, or wheezes CVS: normal S1 and S2, no murmurs, rubs or gallops, no edema GI: soft, NTTP, ND, no hepatosplenomegaly : no suprapubic tenderness, no CVAT, birch catheter [is/not] present MSK: no clubbing, no cyanosis, no noted contractures of extremities Skin: no noted rashes, petechiae; temperature of skin is appropriate Neuro: moving all extremities without signs of weakness, CN II-XII intact Psych: cooperative, euthymic mood, insight and judgment intact Dictation was produced using [employer] dictation software. Please excuse any grammatical, word or spelling errors. Patient Condition at Discharge: Stable Plan - Discharge Summary Discharge Rx Participant: Yes New Discharge Prescriptions: Continue quiNIDine sulfate 200 mg PO BID Levothyroxine Sodium [Synthroid] 75 mcg PO DAILY Ipratropium-Albuterol Nebulize [Duoneb 0.5 mg-3 mg/3 ml Soln] 3 ml INHALATION RT-QID PRN PRN Reason: Shortness Of Breath carvediloL [Coreg] 6.25 mg PO BID Rivaroxaban [Xarelto] 20 mg PO DAILY Furosemide [Lasix] 20 mg PO BID Aspirin EC [Ecotrin Low Dose] 81 mg PO DAILY Discharge Medication List Aspirin EC [Ecotrin Low Dose] 81 mg PO DAILY 02/20/25 [History] Furosemide [Lasix] 20 mg PO BID 02/20/25 [History] Ipratropium-Albuterol Nebulize [Duoneb 0.5 mg-3 mg/3 ml Soln] 3 ml INHALATION RT-QID PRN 02/20/25 [History] Levothyroxine Sodium [Synthroid] 75 mcg PO DAILY 02/20/25 [History] Rivaroxaban [Xarelto] 20 mg PO DAILY 02/20/25 [History] carvediloL [Coreg] 6.25 mg PO BID 02/20/25 [History] quiNIDine sulfate 200 mg PO BID 02/20/25 [History] Follow up Appointment(s)/Referral(s): Renny Salmon MD [RESIDENT] - 1 Week Baljit Tian DO [Doctor of Osteopathic Medicine] - 1 Week None,Stated [Primary Care Provider] - 1-2 days Patient Instructions/Handouts: Spontaneous Pneumothorax (DC) Activity/Diet/Wound Care/Special Instructions: Please follow-up with your PCP within 1 to 2 days. Please also follow with testing and regulating technician within 1 week. If you do not have a PCP please contact the address below: [facility] Address: [facility] [facility], [place] [address]
--- NOTE | 2025-02-23 11:55 | P.PN ---
Subjective Progress Note Date: 02/23/25 Principal diagnosis: Right-sided pneumothorax. Patient is 79-year-old male with past medical history significant for hypothyroidism, FLO with home CPAP, angiosarcoma, pulmonary embolism, and previous right-sided pneumothoraces. Patient presented emergency department yesterday evening complaining of progressively worsening shortness of breath over the last 1 to 2 weeks. There is associated nonproductive cough. Workup in the ED including a chest x-ray showing a 40 to 50% right-sided pneumothorax with right basilar layering effusion. Patchy density in the left upper lobe. The ER physician did insert a right-sided chest tube. A follow-up chest CT showing a persistent right-sided pneumothorax with reduction in size, estimated at approximately 25 to 30%. There is a air-fluid level and persistent right sided pleural effusion. Associated right lung atelectasis and/or masslike consolidation. Redemonstration of patchy left upper lobe infiltrate. CBC: WBC count 7.8, hemoglobin 11.5, platelets 224. PT 13, INR 1.2, APTT 32.5. CMP: Sodium 136, potassium 4.2, chloride 98, serum bicarb 28, creatinine 1.34, glucose 93. Lactic 1.4. LFTs not elevated. Troponin 0.18. NT proBNP 1120. EKG: Atrial fibrillation with controlled ventricular response, rate 81 bpm, nonspecific ST segment changes. Patient currently being evaluated on the cardiac stepdown unit. He is resting comfortably on 4 L/min nasal cannula. Does not appear to be in any respiratory distress. Denies any coughing, hemoptysis, or chest pain. No tracheal shift. Breath sounds are equal. Right-sided thoracotomy tube in place and attached to an atrium and suction at - 20 cm H2O. There is 650 mL of sanguinous output in the chamber. Continues to have intermittent airleak. There is some subcutaneous area at the insertion site. Xarelto was not restarted. Denies recent trauma or previous surgical procedures. Denies any recent respiratory infections/pneumonia. Reports remote history of tobacco use. Denies history of COPD/emphysema. Patient states that he has had previous right-sided pneumothorax. 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 He was previously on Keytruda, but stopped this in November,. Reportedly, follows with an oncologist out of the [facility]. Progress note dated February 22, 2025. The patient is seen today in room 364. He is on 2 L of oxygen. He has a right chest tube in place. No IV fluids. The chest tube is to suction. There is no leak. His chest tube and pneumothorax is currently being managed by cardiothoracic surgery. On today's chest x-ray, there was a trace right apical pneumothorax, smaller than yesterday's chest x-ray. Clinically, the patient stable. Current labs include a white count of 7.5, hemoglobin 9.8, hematocrit 31.9, and platelet count of 204,000. Sodium 138, potassium 3.7, chlorides 104, CO2 28, BUN 23, creatinine 1.32. Glucose was 100. Calcium 9.1, magnesium 2.1. Progress note dated February 23, 2025. The patient is seen today in room 364. The right-sided chest tube was removed. The patient is on room air. He is not receiving any IV fluids. The follow-up chest x-ray was reviewed. From my perspective, the patient could be considered for possible discharge. Will leave that up to the primary service. White count 7.9, hemoglobin 9.8, hematocrit 31.6, platelet count 224,000. Sodium 138, potassium 3.7, chlorides 103, CO2 27, anion gap 8, BUN 23, creatinine 1.13. Glucose is 100. Calcium 9.1. The chest x-ray is unchanged. Objective - Vital Signs Vital signs: Vital Signs Temp 98 F 02/23/25 03:45 Pulse 88 02/23/25 08:00 Resp 16 02/23/25 08:00 BP 139/57 02/23/25 08:00 Pulse Ox 98 02/23/25 08:00 FiO2 Intake & Output 02/22/25 02/23/25 02/23/25 18:59 06:59 18:59 Intake Total 380 560 190 Output Total 400 650 Balance -20 -90 190 Weight 85.4 kg Intake: IV 20 20 10 Invasive Line 1 20 20 10 Oral 360 540 180 Output: Chest Tube Drainage 0 0 Chest Tube Right 0 0 Urine 400 650 Other: Voiding Method Urinal Urinal Urinal # Voids 2 - Exam No acute distress, oriented 3. Currently on room air. HEENT examination is grossly unremarkable. Mucous membranes are moist. No oral lesions. Neck supple. Full range of motion. No adenopathy thyromegaly or neck vein dis tention. Cardiovascular examination reveals regular rhythm rate. S1-S2 normal. No S3 or S4. No discernible murmur noted. Lungs reveal mostly clear breath sounds. Few scattered rhonchi. The right sided chest tube has been removed. Abdomen soft bowel sounds are heard. No masses or tenderness. Extremities are intact. No cyanosis clubbing or edema. Skin is without rash or lesion. Neurologic examination is brief but nonfocal. - Labs CBC & Chem 7: 02/23/25 06:30 02/23/25 06:30 Labs: Abnormal Lab Results - Last 24 Hours (Table) 02/23/25 02/23/25 Range/Units 06:30 06:30 RBC 3.76 L (4.40-5.60) 10*6/uL Hgb 9.8 L (13.0-17.0) g/dL Hct 31.6 L (39.6-50.0) % MCH 26.1 L (27.0-32.0) pg MCHC 31.0 L (32.0-37.0) g/dL MPV 9.1 L (9.5-12.2) fL Immature Gran # 0.07 H (0.00-0.04) 10*3/uL Lymphocytes # 0.77 L (0.90-5.00) 10*3/uL Monocytes # 1.11 H (0.20-1.00) 10*3/uL BUN 23 H (9-20) mg/dL Glucose 100 H (74-99) mg/dL Microbiology - Last 24 Hours (Table) 02/20/25 18:09 Blood Culture - Preliminary Blood Assessment and Plan Assessment: Spontaneous right-sided hydropneumothorax, status post right-sided chest tube insertion. Acute hypoxemic respiratory failure, secondary to above. 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 Atrial fibrillation with controlled ventricular response. Acute versus chronic kidney disease, creatinine 1.34. History of obstructive sleep apnea with home CPAP. History of hypothyroidism. Reported history of PE/DVT. Plan: Plan dated February 22, 2025. The patient is seen today in room 364. He is resting comfortably in bed. He is on 3 L of oxygen. No IV fluids. His chest tube, on the right side, is being managed by cardiothoracic surgery. The chest tube is still on suction. Likely will go to [facility] soon. There is no leaks. Clinically, the patient is stable. Labs, x-rays, and all medications are reviewed. We will continue to follow and make recommendations were appropriate. Prognosis is guarded. Dictation was produced using [employer] software. Please excuse any grammatical, word or spelling errors. Plan dated February 23, 2025. The patient is seen today in room 364. The chest tube was removed by cardiothoracic surgery. Follow-up chest x-ray is essentially unchanged. No obvious pneumothorax. The patient is on room air. He is not receiving any IV fluids. Labs, x-rays, and all medications are reviewed. From our perspective, the patient could be considered for discharge. No follow-up is necessary. Dictation was produced using [employer] software. Please excuse any grammatical, word or spelling errors. Time with Patient: Less than 30
== END 2025-02-23 12:27 | disposition home or self-care (01) | DRG 186 ==
LOC: EC 17:04 → 3SCARD 21:51
PROVIDERS: ADMIT Internal Medicine; ATTEND Internal Medicine
PROC: 0W9930Z Drainage of Right Pleural Cavity with Drainage Device, Percutaneous Approach (ICD-10-PCS; principal; 2025-02-20)
DX: J94.8 Other specified pleural conditions (principal); I21.A1 Myocardial infarction type 2; J96.01 Acute respiratory failure with hypoxia; C78.00 Secondary malignant neoplasm of unspecified lung; D63.8 Anemia in other chronic diseases classified elsewhere; J90 Pleural effusion, not elsewhere classified; J44.9 Chronic obstructive pulmonary disease, unspecified; E03.9 Hypothyroidism, unspecified; N18.9 Chronic kidney disease, unspecified; I12.9 Hypertensive chronic kidney disease with stage 1 through stage 4 chronic kidney disease, or unspecified chronic kidney disease; N17.9 Acute kidney failure, unspecified; J98.11 Atelectasis; I48.91 Unspecified atrial fibrillation; I25.2 Old myocardial infarction; G47.33 Obstructive sleep apnea (adult) (pediatric); Z79.82 Long term (current) use of aspirin; Z79.890 Hormone replacement therapy; Z79.01 Long term (current) use of anticoagulants; Z79.899 Other long term (current) drug therapy; Z87.01 Personal history of pneumonia (recurrent); Z86.711 Personal history of pulmonary embolism; Z92.3 Personal history of irradiation; Z92.21 Personal history of antineoplastic chemotherapy; Z86.718 Personal history of other venous thrombosis and embolism; Z87.891 Personal history of nicotine dependence; Z92.26 Personal history of immune checkpoint inhibitor therapy; Z85.89 Personal history of malignant neoplasm of other organs and systems
CPT/HCPCS: 32551; 36415; 71045; 71046; 71250; 80048; 80053; 82728; 83540; 83550; 83605; 83735; 83880; 84484; 85025; 85027; 85610; 85730; 87040; 93005; 94640; 96374; 99291